=== PATIENT | female | born 1980 | race American Indian/Alaskan Native ===

== ENCOUNTER 2016-12-07 21:10 | Emergency (ER) | payer BC ==
[2016-12-07 23:49] VITALS: BMI 25.9
[2016-12-08 00:12] LABS: RBC URINE 2 /hpf (0-3); URINE BILIRUBIN NEGATIVE (NEGATIVE); URINE BLOOD NEGATIVE (NEGATIVE); URINE GLUCOSE (UA) NEG (Normal); URINE KETONE NEGATIVE (NEGATIVE); URINE LEUKOCYTE ESTERASE MOD Leu/uL (Negative); URINE PROTEIN NEGATIVE (NEGATIVE); URINE UROBILINOGEN 0.2-1.0 mg/dL (0.2-1.0); WBC URINE 1 /hpf (0-5)
[2016-12-08 00:19] LABS: URINE COLOR YELLOW (YELLOW)
--- NOTE | 2016-12-08 01:06 | OBHP ---
Datetime: 12/07/2016 11:30 IP Adm Impression: , intrauterine ; No Active Labor IP Admit Plan: Observation/Evaluation Admit Comment, IP Provider: CC: vaginal discharge of mucus HPI: 36 yo at 30.1 wks based on first US on 07/28/2016 Last U/s 11/11/2016 Pt shares of mucus discharge per vagina starting earlier today while in maternal class. +FM,CTX -: VB,ROM PNC: Dr. Harley; 07/28/2016 US findin.5 cm posterior myoma Past OBhx: 1 Induced AB Past Gyne: negative for STIs; Pap 07/23/2016 WNL pmhx: nasal polyps Past sug hx: 2001 R nasal endoscopy; 2012 L nasal polypectomy past soc: denies: smoking, alcohol, illicit drugs Meds: PNV Allergies: penicillin Vitals: 109/68 74 PE: General: pleasant, in no acute distress HEENT: normocephalic, PERRLA; AAOx3 Heart: no murmurs, regular rate and rhythm, S1, S2 normal. Lungs: clear to auscultation bilaterally, no wheezing Abdomen: nontender, gravid Lower extremities: negative for pitting edema Pelvic: negative for pooling of amniotic fluid or bleeding in vaginal canal; cervix closed Monitor: moderate variability; accel 15x15; no decel; fhr: 140 bpm HIV: -; RPR:-; rubella: IM; Assessment: 36 yo IUP at 30.1 wks GA with hx of 1 induced AB No evidence of ROM Plan: UA, limited US Observe to r/o UTI and measure MANAV STONE PGY1 OB Hospitalist note: This pt was seen and examined by me. Agree with above note. MAHNDO Julee vaginitis (PE white curdy discharge) will check MANAV with official sono...Dr Harley aware and will give Terazol 7 Pelvic Type - PN: Adequate Extremities - PN: Normal Abdomen - PN: Normal Back - PN: Not Done Breast - PN: Not Done Lungs - PN: Normal Heart - PN: Normal Thyroid - PN: Not Done Neurologic - PN: Normal HEENT - PN: Normal General - PN: Normal FHR - Baseline A Provider: 140 Comments, ACOG Physical Exam: ROS: General: no weakness; no fatigue HEENT: no FLORES; no visual dist CV: no palpitations; no no CP GI: no N/V no diarhea : no F/U/D MS: No joint pain Pool Provider: Positive Ferning Provider: Negative IP Hx Assessment: The History has been Reviewed and is Current Vital Signs Provider: Reviewed; Within Normal Limits IP Chief Complaint: Suspected ruptured membranes NICHD Variability Prov Fetus A: Moderate 6-25bpm NICHD Accel Fetus A IP Provider: [id number] FHR Category Provider Fetus A: Category I NICHD Decel Fetus A IP Provider: None Dilatation, Provider: 0 Genitourinary Exam: Normal DTRs - PN: Not Done
--- NOTE | 2016-12-08 09:24 | OBDCSUM ---
Datetime: 12/08/2016 02:06 Discharged to, Provider: Home Follow up at, Provider: [facility] Disch Instr Activity: Normal activity Disch Instr Diet: Regular Discharge Instructions, Provider: Routine instructions given Discharge Diagnosis, Provider: False Labor - Undelivered Discharge Time: 12/08/2016 02:09 Follow up in weeks, Provider: 12/09/2016 Disch Referrals: None Contraception discussed, Prov: No Disch Activity Restrictions: No lifting; No sexual activity; Nothing in vagina - [place], tampon s, douche Discharge Comment, Provider: UA neg; FERN neg; FFN neg; MANAV 12cm Rx: Terconazole 7 for javier vaginitis MANAV: 12.5 Dr Harley as scheduled
[2016-12-08 11:32] VITALS: BP 109/68; PULSE 74; RESP 16; TEMP 98.2
--- NOTE | 2016-12-08 12:11 | US ---
PROCEDURE: Limited obstetrical ultrasound HISTORY: MANAV COMPARISON: Not available TECHNIQUE: Transabdominal FINDINGS: Limited obstetrical ultrasound examination was ordered specifically for assessment of amniotic fluid index. Examination demonstrates a single live intrauterine gestation. presentation is not noted. Placental position and relation to cervix is not noted. heart rate is 143 beats per minute. biometry yields a gestational age of 28 weeks 6 days. Please note that the abdominal circumference is low relative to the other measurements. Significance uncertain. Careful followup is advised. The amniotic fluid index is 12.5 cm. IMPRESSION: Amniotic fluid index 12.5 cm. Single live intrauterine gestation of approximately 28 weeks 6 days. Abdominal circumference is abnormally low, measuring 25 weeks 3 days. The remaining measurements are approximately 29-30 weeks. Significance uncertain. Recommend full obstetrical ultrasound examination.
== END 2016-12-08 02:10 | disposition home or self-care (01) ==
LOC: H.EROB2 21:10 → H.EROB 21:23 → H.EROB2 21:23
DX: O47.03 False labor before 37 completed weeks of gestation, third trimester (principal); Z3A.30 30 weeks gestation of pregnancy